=== PATIENT | male | born 1985 | race Two or more races ===

== ENCOUNTER 2024-01-30 14:13 | Emergency (ER) | payer OTHER ==
[~2024-01-30] VITALS: Ht 160 cm; Wt 64.1 kg
[2024-01-30] MEDS: ACETAMINOPHEN 500 MG TAB PO ONE (14:28)
[2024-01-30 14:44] VITALS: BP 147/61; PULSE 129; RESP 16; O2SAT 98
[2024-01-30 15:02] LABS: Urine Bacteria None Seen /hpf (None Seen)
[2024-01-30 15:14] LABS: Urine Blood Negative /uL (Negative); Urine Clarity Clear (Clear); Urine Color Yellow (Yellow); Urine Mucus FEW (None Seen); Urine Protein, UAD TRACE (Negative); Urine Specific Gravity 1.026 (1.001-1.035); Urine Urobilinogen Normal (Negative); Urine WBC <1 /hpf (0 - 3)
[2024-01-30 15:28] VITALS: TEMP 98.4
[2024-01-30 15:49] LABS: Basophils # (auto) 0 10 ^3/uL (0-0.2); Basophils % (auto) 0.3 % (0.0-2.0); Eosinophils # (auto) 0 10 ^3/uL (0-0.8); Hematocrit 42.7 % (41.0-53.0); Hemoglobin 14.8 g/dL (13.5-17.5); Lymphocytes % (auto) 6.5 % (10.0-50.0); Mean Corpuscular Hemoglobin 31.3 pg (28.0-32.0); Mean Corpuscular Hgb Conc. 34.7 g/dL (32.0-36.0); Mean Corpuscular Volume 90.2 fL (80.0-100.0); Monocytes # (auto) 1.3 10 ^3/uL (0-1.3); Monocytes % (auto) 8.2 % (0.0-12.0); Neutrophils # (auto) 13.2 10 ^3/uL (1.6-8.6); Nucleated Red Blood Cells % 0.1 %; Platelet Count (auto) 214 10^3/uL (140-450); Red Blood Cells 4.74 10^6/uL (4.5-5.90); Red Cell Distribution Width 13.4 % (11.8-14.3); White Blood Cell 15.5 10^3/uL (4.4-10.8)
[2024-01-30] MEDS: cefTRIAXone SOD 1,000 MG VL IM ONE (15:57)
[2024-01-30 15:59] LABS: Anion Gap 6 (5-15); Carbon Dioxide 26 mmol/L (20-31); Chloride 100 mmol/L (98-107); Potassium 3.7 mmol/L (3.5-5.1); Sodium 132 mmol/L (136-145)
[2024-01-30 16:00] LABS: Calcium 9.6 mg/dL (8.7-10.4)
[2024-01-30 16:05] LABS: BUN/Creatinine Ratio 9.4 (10.0-20.0); Blood Urea Nitrogen 9 mg/dL (9-23); Glucose 143 mg/dL (74-106)
[2024-01-30] MEDS ORDERED: CEPH500C PO (16:20)
[2024-01-30] MEDS ORDERED: IBUP-1454 PO (16:20)
== END 2024-01-30 16:18 | disposition home or self-care (01) ==
LOC: ER 14:18
DX: M00.862 Arthritis due to other bacteria, left knee (principal); R50.9 Fever, unspecified
CPT/HCPCS: 36415; 71045; 73562; 80048; 81001; 83605; 85025; 87040; 96372; 99284; J0696

== ENCOUNTER 2024-02-01 07:37 | Emergency (ER) | payer OTHER ==
[~2024-02-01] VITALS: Ht 162.6 cm; Wt 60.9 kg
[~2024-02-01 07:37] MED LIST: CEPH500C PO; IBUP-1454 PO
[2024-02-01 07:46] VITALS: TEMP 98.3
[2024-02-01 07:51] VITALS: BP 114/62; PULSE 96; RESP 14; O2SAT 98
--- NOTE | 2024-02-01 08:07 | ED.PDOC ---
Musculoskeletal HPI Comments A 38 YEAR OLD MALE PRESENTS TO THE ED WITH COMPLAINT OF WOUND RECHECKED AND LEFT LOWER LEG REDNESS AND MILD SWELLING. PATIENT STATES HE ORIGINALLY HAD A SMALL BUMP BELOW HIS LEFT KNEE 2 DAYS AGO WHERE HE RECEIVED IV ANTIBIOTICS AND HAD LAB WORK DONE WHICH WAS NORMAL AND WAS PRESCRIBED KEFLEX HERE IN THIS ED AND WAS INSTRUCTED TO COME BACK TO THE ED TODAY FOR A WOUND RECHECKED. PATIENT REPORTS HE BEGAN TO EXPERIENCE MILD REDNESS AND SWELLING TO HIS LEFT LOWER LEG YESTERDAY. PATIENT DENIES FEVER, CHILLS, SHORTNESS OF BREATH, CHEST PAIN, ABDOMINAL PAIN, NAUSEA, VOMITING, HEADACHE, OR OTHER COMPLAINTS. NO OTHER SYMPTOMS OR MODIFYING FACTORS AT THIS TIME. PATIENT IS ALERT, ORIENTED X 4, AND HAS STEADY GAIT. Chief Complaint: Lower Extremity Time Seen by MD: 07:50 Primary Care Provider: NONE Reviewed Notes: Nurses Notes, Medications, Allergies Allergies: Coded Allergies: NO KNOWN ALLERGIES (Unverified , 01/30/24) Home Meds Active Scripts Clindamycin Hcl (Clindamycin Hcl) 300 Mg Cap, 1 CAP PO TID, #30 CAP Prov:DERICK ZAZUETA 02/01/24 Ibuprofen (Ibuprofen) 600 Mg Tab, 1 TAB PO QID, #30 TAB Prov:DERICK ZAZUETA 01/30/24 Cephalexin Monohydrate (Cephalexin) 500 Mg Cap, 1 CAP PO QID, #40 CAP Prov:DERICK ZAZUETA 01/30/24 Information Source: Patient Mode of Arrival: Ambulatory Location: Left Extremity Location: Leg (LOWER LEG) Timing: Days Prehospital treatment: None Severity: Moderate Able to Move Extremity: Yes Bear Weight: Fully Pain: Moderate Mechanism: No Trauma, Spontaneous Circumstances: Spontaneous Onset of Symptoms: Spontaneous Symptoms: Swelling, Pain, Erythema DVT Risk Factors: NONE Last Tetanus: Unknown Associated signs and symptoms: Swelling Past Medical History PAST MEDICAL HISTORY: Denies Surgical History: Denies all surgeries Family History Family History: Reviewed,noncontributory to illness Social History Smoker: Non-Smoker Alcohol: Denies ETOH Use Drugs: Denies Drug Use Lives In: Home Constitutional: denies: chills, diaphoresis, fatigue, fever, malaise, sweats, weakness, others EENTM: denies: blurred vision, double vision, ear bleeding, ear discharge, ear drainage, ear pain, ear ringing, eye pain, eye redness, hearing loss, mouth pain, mouth swelling, nasal discharge, nose bleeding, nose congestion, nose pain, photophobia, tearing, throat pain, throat swelling, voice changes, others Respiratory: denies: cough, hemoptysis, orthopnea, SOB at rest, shortness of breath, SOB with excertion, stridor, wheezing, others Cardiovascular: denies: chest pain, dizzy spells, diaphoresis, Dyspnea on exertion, edema, irregular heart beat, left arm pain, lightheadedness, palpitations, PND, syncope, others Gastrointestinal: denies: abdomen distended, abdominal pain, blood streaked bowels, constipated, diarrhea, dysphagia, difficulty swallowing, hematemesis, melena, nausea, poor appetite, poor fluid intake, rectal bleeding, rectal pain, vomiting, others Genitourinary: denies: burning, dysuria, flank pain, frequency, hematuria, incontinence, penile discharge, penile sore, pain, testicle pain, testicle swelling, urgency, others Neurological: denies: dizziness, fainting, headache, left sided numbness, left sided weakness, numbness, paresthesia, pre-existing deficit, right sided numbness, right sided weakness, seizure, speech problems, tingling, tremors, weakness, others Musculoskeletal: reports: others (LEFT LOWER LEG MILD SWELLING); denies: back pain, gout, joint pain, joint swelling, muscle pain, muscle stiffness, neck pain Integumetry: reports: lumps (LEFT BELOW THE KNEE ), others (MILD REDNESS OF LEFT LOWER LEG); denies: bruises, change in color, change in hair/nails, dryness, laceration, lesions, rash, wounds Allergic/Immunocompromised: denies: Difficulty Healing, Frequent Infections, Hives, Itching, others Hematologic/Lymphatic: denies: anemia, blood clots, easy bleeding, easy bruising, swollen glands, others Endocrine: denies: excessive hunger, excessive sweating, excessive thirst, excessive urination, flushing, intolerance to cold, intolerance to heat, unexplained weight gain, unexplained weight loss, others Psychiatric: denies: anxiety, bipolar disorder, depression, hopeless, panic disorder, schizophrenia, sleepless, suicidal, others All Other Systems: Reviewed and Negative Physical Exam General Appearance: No Apparent Distress, Normal HEENT: Normal ENT Inspection, PERRL/EOMI, Pharynx Normal, TMs Normal Neck: Full Range of Motion, Non-Tender, Normal, Normal Inspection Respiratory: Chest Non-Tender, Lungs Clear, No Accessory Muscle Use, No Respiratory Distress, Normal Breath Sounds Cardiovascular: No Edema, No JVD, No Murmur, No Gallop, Normal Peripheral Pulses, Regular Rate/Rhythm Breast Exam: Deferred Gastrointestinal: No Organomegaly, Non Tender, No Pulsatile Mass, Normal Bowel Sounds, Soft Genitalia: Deferred Pelvic: Deferred Rectal: Deferred Extremities: No calf tenderness, Normal capillary refill, Normal range of motion, No pedal edema, Tender (WITH ERYTHEMA AND MILD SWELLING ON LEFT ANTERIOR LOW LEG, NO BONY TENDERNESS AND DEFORMITY. ), Other (A HEALING BUMP NOTED TO ANTERIOR BELOW LEFT KNEE REGION, NO SWELLING OR OPEN WOUND SEEN. ) Musculoskeletal : Apperance: Normal Neurologic: Alert, western felt hat blocker II-XII nml as Tested, No Motor Deficits, Normal Affect, Normal Mood, No Sensory Deficits Cerebellar Function: Normal Reflexes: Normal Skin: Dry, Warm, Other (LOCALIZED ERYTHEMA AND MILD SWELLING ON LEFT ANTERIOR LOWER LEG, NO DVT SIGNS. CELLULITIS?? ) Peripheral Pulses: 2+ carotid (R), 2+ carotid (L), 2+ dorsalis pedis (R), 2+ dorsalis pedis (L) Lymphatic: No Adenopathy Was a procedure done? Was a procedure done?: No Differential Diagnosis EXT Differential Diagnosis: Cellulitis, Deep Vein Thrombosis, Strain X-Ray, Labs, Meds, VS Vital Signs Date Time Temp Pulse Resp B/P (MAP) Pulse Ox O2 Delivery O2 Flow Rate FiO2 02/01/24 07:51 98.3 96 14 114/62 (79) 98 02/01/24 07:46 98.3 96 14 114/62 (79) 96 98.3 Current Medications Medications (Trade) Dose Ordered Sig/Amara Route Start Time Stop Time Status Last Admin Ceftriaxone Sodium 50 ml @ 100 mls/hr ONCE ONCE IV 02/01/24 08:30 02/01/24 08:59 DC 02/01/24 08:31 Clindamycin Phosphate 50 ml @ 50 mls/hr ONCE ONCE IV 02/01/24 08:30 02/01/24 09:29 02/01/24 08:51 Ketorolac Tromethamine (Toradol Injection) 30 mg ONCE ONCE IV 02/01/24 08:30 02/01/24 08:31 DC 02/01/24 08:31 EXAM: US Duplex Left Lower Extremity Veins CLINICAL INDICATION: LEFT LOWER LEG REDNESS AND SWELLING TECHNIQUE: Real-time duplex ultrasound scan of the left lower extremity veins integrating B-mode two-dimensional vascular structure, Doppler spectral analysis, color flow Doppler imaging and compression. COMPARISON: None FINDINGS: DEEP VEINS: Unremarkable. No DVT in the visualized common femoral, femoral, proximal deep femoral or popliteal veins. The veins demonstrate normal color flow, are normally compressible, with normal phasic flow and/or augmentation res ponse. SUPERFICIAL VEINS: Unremarkable. No thrombus in the visualized great saphenous vein. SOFT TISSUES: No acute findings. No popliteal cyst. LYMPH NODES: 3.1 cm lypmh node. . OTHER FINDINGS: . . . IMPRESSION: No DVT. HS:Y ATED BY: NADIA AMOR MD DICTATED DATE/TIME: 02/01/24838 SIGNED BY: NADIA AMOR MD SIGNED DATE/TIME: 02/01/24838 CC: X-Ray, Labs, Meds, VS Comment TREATMENT: TORADOL 30MG IV, ROCEPHIN 1 G IV, CLINDAMYCIN 600 MG IM Images Reviewed?: Images reviewed and evaluated by me Time of 1ST Reevaluation: 09:40 Reevaluation 1ST: Improved Patient Education/Counseling: Diagnosis, Treatment, Need For Follow Up Family Education/Counseling: Diagnosis, Treatment, Need For Follow Up Medical Screening: No EMC Exist At This Time Departure 1 Departure Time of Disposition: 09:50 Impression: Primary Impression: Cellulitis of left anterior lower leg Disposition: 01 HOME / SELF CARE / HOMELESS Condition: Stable Additional Instructions: FOLLOW-UP WITH PCP IN 1 TO 2 DAYS. TAKE MEDICATIONS PRESCRIBED. RETURN TO ED FOR ANY NEW OR WORSENING SYMPTOMS. e-Prescriptions Clindamycin Hcl (Clindamycin Hcl) 300 Mg Cap 1 CAP PO TID, #30 CAP Prov: DERICK ZAZUETA 02/01/24 Discharged With: Self Critical Care Note Critical Care Time?: No Stability Stability form required: No I personally scribed for DERICK ZAZUETA ([email or web address]) on 02/01/24 at 08:07. Electronically submitted by Clayton Melchor ([email or web address]). I personally scribed for DERICK ZAZUETA ([email or web address]) on 02/01/24 at 08:54. Electronically submitted by Clayton Melchor ([email or web address]). I personally scribed for DERICK ZAZUETA ([email or web address]) on 02/01/24 at 09:03. Electronically submitted by Clayton Melchor ([email or web address]). DERICK ZAZUETA Feb 01, 2024 08:07
[2024-02-01] MEDS: cefTRIAXone 1GM/50ML D5W 50 ML IV ONE (08:31)
[2024-02-01] MEDS: KETOROLAC TROMETH 30 MG/ML 1ML VIAL IV ONE (08:31)
--- NOTE | 2024-02-01 08:42 | DVH ---
EXAM: US Duplex Left Lower Extremity Veins CLINICAL INDICATION: LEFT LOWER LEG REDNESS AND SWELLING TECHNIQUE: Real-time duplex ultrasound scan of the left lower extremity veins integrating B-mode two -dimensional vascular structure, Doppler spectral analysis, color flow Doppler imaging and compressio n. COMPARISON: None FINDINGS: DEEP VEINS: Unremarkable. No DVT in the visualized common femoral, femoral, proximal deep femoral o r popliteal veins. The veins demonstrate normal color flow, are normally compressible, with normal p hasic flow and/or augmentation response. SUPERFICIAL VEINS: Unremarkable. No thrombus in the visualized great saphenous vein. SOFT TISSUES: No acute findings. No popliteal cyst. LYMPH NODES: 3.1 cm lypmh node. . OTHER FINDINGS: . . . IMPRESSION: No DVT. HS:Y
[2024-02-01] MEDS ORDERED: CLIN1CAP70 PO (08:47)
[2024-02-01] MEDS: CLINDAMYCIN 600MG IV 50 ML IV ONE (08:51)
== END 2024-02-01 09:33 | disposition home or self-care (01) ==
LOC: ER 07:37
DX: L03.116 Cellulitis of left lower limb (principal)
CPT/HCPCS: 93971; 96365; 96368; 96375; 99285; J0696; J1885; J3490